=== PATIENT | female | born 1980 ===

== ENCOUNTER 2017-06-07 10:32 | Emergency (ER) | payer BC ==
--- NOTE | 2017-06-07 10:53 | UC ---
Throat Pain/Nasal Wood HPI - HPI Summary HPI Summary: Had a cold with nasal congestion and facial pressure starting a little over a week ago, then traveled to [place] from [place] 4 days ago and symptoms dramatically worsened. Lots of R facial pressure with R ear fullness and difficulty hearing. No ear drainage. Has been doing sinus rinses with lots of yellow discharge. Had sinus surgery august 2016. - History of Current Complaint Chief Complaint: UCGeneralIllness Stated Complaint: EAR PAIN SINUS ISSUE Time Seen by Provider: 06/07/17 10:41 Hx Obtained From: Patient Hx Last Menstrual Period: 06/01/17 ?: No Onset/Duration: Gradual Onset, Lasting Days Severity: Moderate Cough: Nonproductive Associated Signs & Symptoms: Positive: Sinus Discomfort, Nasal Discharge. Negative: Fever, Vomiting - Allergies/Home Medications Allergies/Adverse Reactions: Allergies Allergy/AdvReac Type Severity Reaction Status Date / Time Pineapple Allergy Swelling Verified 06/07/17 10:39 PMH/Surg Hx/FS Hx/Imm Hx Previously Healthy: Yes - Surgical History Surgery Procedure, Year, and Place: Sinus Surgery 08/26/16 - Family History Known Family History: Positive: Hypertension - Social History Lives: With Family Alcohol Use: None Substance Use Type: None Smoking Status (MU): Never Smoked Tobacco Review of Systems Constitutional: Negative Skin: Negative Eyes: Negative ENT: Ear Ache, Nasal Discharge, Sinus Congestion, Sinus Pain/Tenderness Respiratory: Negative Cardiovascular: Negative Gastrointestinal: Negative Genitourinary: Negative Motor: Negative Neurovascular: Negative Musculoskeletal: Negative Neurological: Negative Psychological: Negative All Other Systems Reviewed And Are Negative: Yes Physical Exam Triage Information Reviewed: Yes Appearance: Well-Appearing, No Pain Distress, Well-Nourished Vital Signs: Initial Vital Signs Temp 98.8 F 06/07/17 10:34 Pulse 77 06/07/17 10:34 Resp 16 06/07/17 10:34 BP 132/66 06/07/17 10:34 Pulse Ox 99 06/07/17 10:34 Vital Signs Reviewed: Yes Eye Exam: Normal, Other - PERRL Eyes: Positive: Conjunctiva Clear ENT Exam: Other - R maxillary tenderness ENT: Positive: Pharynx normal, Nasal congestion, TMs normal, Other: - fluid/ bubbles noted behind R TM. Negative: Tonsillar swelling, Tonsillar exudate Dental Exam: Normal Neck exam: Normal Neck: Positive: Supple, Nontender, No Lymphadenopathy Respiratory Exam: Normal Respiratory: Positive: Chest non-tender, Lungs clear, Normal breath sounds, No respiratory distress, No accessory muscle use Cardiovascular Exam: Normal Cardiovascular: Positive: RRR, No Murmur, Pulses Normal Musculoskeletal Exam: Normal Neurological Exam: Normal Neurological: Positive: Alert Psychological Exam: Normal Skin Exam: Normal Throat Pain/Nasal Course/Dx - Differential Dx/Diagnosis Provider Diagnoses: R maxillary sinusitis. R serous otitis. Elevated blood pressure due to discomfort Discharge - Discharge Plan Condition: Stable Disposition: HOME Prescriptions: Amoxicillin/Clavulanate TAB* [Augmentin TAB 875*] 875 mg PO BID #14 tab Patient Education Materials: Rhinosinusitis (ED), Serous Otitis Media (ED) Additional Instructions: If your symptoms worsen, or if you develop severe headache, high fever, stiff neck, or a rash, you must call your doctor or return for re-evaluation. SINUS RINSES HAVE BEEN SHOWN TO HELP IMPROVE SYMPTOMS AND SHORTEN THE DURATION OF MILD TO MODERATE SINUSITIS. [employer] MAKES A SQUEEZE BOTTLE THAT YOU CAN USE OVER THE SINK OR IN THE SHOWER. USE ONLY SALINE, AND REPEAT UP TO EVERY 2 HOURS DESIRED. ONLY USE DISTILLED WATER TO MIX UP SALINE, DO NOT USE TAP WATER. NASAL SPRAYS AND DROPS: Decongestant nasal sprays and drops often give dramatic relief from congestion. They are often recommended for patients with sinus infection to assist with sinus drainage. Persons with high blood pressure should consult the doctor before using these nasal sprays. Afrin and Desmond-Synephrine are common [id number] preparations. They should not be used for more than three days, as "rebound" congestion can occur - - the congestion flares as the drug wears off. A way of dealing with this rebound congestion problem is to medicate only one nostril each time, allowing the other nostril to recover from the medicine' s effects. When you no longer need the drug during the day, spray only one nostril each night. This helps you sleep well without severe rebound congestion. Call your doctor if you develop severe headache, palpitations, or chest pain.
== END 2017-06-07 10:50 | disposition home or self-care (01) ==
LOC: UCEAST 10:32
DX: J32.0 Chronic maxillary sinusitis (principal); H65.91 Unspecified nonsuppurative otitis media, right ear; R03.0 Elevated blood-pressure reading, without diagnosis of hypertension
CPT/HCPCS: 99202; G0463